=== PATIENT | male | born 2000 | race Caucasian/White ===

== ENCOUNTER 2023-11-18 11:37 | Outpatient (OUT) | payer OTHER, SELFPAY | END 2023-11-18 11:38 | disposition home or self-care (01) | LOC: PST 11:39 | PROVIDERS: PCP Family Medicine; Visit Provider Internal Medicine | DX: Z01.818 Encounter for other preprocedural examination (principal); R05.3 Chronic cough ==

== ENCOUNTER 2023-11-23 10:43 | Day surgery (SDC) | payer OTHER, SELFPAY ==
[2023-11-18 12:08] VITALS: BP 122/82; PULSE 92; RESP 18; TEMP 36.3; O2SAT 97; BMI 31.3
[2023-11-23] VITALS (11 sets, daily range): BP systolic 113–133; BP diastolic 68–86; PULSE 66–128; TEMP 36.1; O2SAT 90–100; BMI 33.3
[2023-11-23] MEDS: LACTATED RINGER'S SOLUTION 1,000 ML 50 ML IV (11:25)
[2023-11-23] MEDS: LIDOCAINE HCL 1% 100 MG/10 ML MDV INJ (12:05)
--- NOTE | 2023-11-23 17:48 | P.ON_ITS ---
Date of procedure: 11/23/23 Procedure: Procedure Diagnostic fiberoptic flexible bronchoscopy with bronchoalveolar lavage (BAL) and endobronchial biopsies Indication Chronic cough of years Findings No endobronchial lesions Anesthesia 1. General anesthesia - please see their records 2. Lidocaine 1% - 10mL Specimens 1. BAL of right middle lobe 2. Endobronchial biopsies of right upper lobe bronchus Estimated blood loss <1 Complications None immediately following procedure Description Informed consent was obtained after risks, benefits, and alternatives were discussed with the patient.? Time out was initiated to confirm the correct patient, site, and procedure with all present voicing in the affirmative. Patient was brought to the operating room suite where noninvasive monitoring was utilized.? Sedation & anesthesia were administered by the anesthesia department- please refer to their records for further information.? Tape was placed over the patient's eyes to prevent spillage of secretions.? A laryngeal mask airway was placed by anesthesia.? The vocal cords were observed without gross evidence of nodules, ulcers, or masses.? 5mL of 1% lidocaine were instilled topically to the vocal cords.? The bronchoscope was then passed between the vocal cords and advanced through the trachea without any gross tracheal lesions. The bronchoscope reached the distal trachea where an additional 5mL of 1% lidocaine were instilled topically to the main julian.? The main jluian was sharp without splaying or evidence of underlying mass. The bronchoscope was then advanced through the right main bronchus to the right upper lobe, where the apical, posterior, and anterior segments were visualized.? The bronchoscope was advanced through the bronchus intermedius to the right middle lobe or the medial and lateral segments visualized.? The bronchoscope was then advanced to the right lower lobe superior, medial, anterior, lateral, and posterior basilar segments.? No endobronchial lesions, exudate, or other abnormalities were noted. The bronchoscope was retracted to the main julian and advanced through the left main bronchus to the left upper lobe where the upper division apicoposterior and anterior, as well as lingular superior and inferior segments were visualized.? The bronchoscope was then advanced into the left lower lobe where the superior, anteromedial, lateral, and posterior basilar segments visualized.? No endobronchial lesions, exudate, or other abnormalities were noted. Next, a BAL was obtained from the right middle lobe. Once adequate return of lavage fluid was obtained, the bronchoscope was repositioned to the right upper lobe bronchus where 3 endobronchial biopsies were obtained. There was minimal bleeding with hemostasis spontaneously achieved without any intervention on my part. The bronchoscope was withdrawn.? Patient tolerated procedure well. Surgeon: Yoseph House Condition: stable Disposition: same day
== END 2023-11-23 13:30 | disposition home or self-care (01) ==
PROVIDERS: PCP Family Medicine; Visit Provider Internal Medicine
PROC: (CPT 520; principal; 2023-11-23 12:00)
DX: R05.3 Chronic cough (principal); K21.9 Gastro-esophageal reflux disease without esophagitis; F84.0 Autistic disorder; Z86.16 Personal history of COVID-19
CPT/HCPCS: 31624; 31625; 87070; 87075; 87102; 87116; 87205; 87206; 99999; J1094; J2704